=== PATIENT | female | born 1990 | race African-American/Black ===

== ENCOUNTER 2017-02-09 12:27 | Emergency (ER) | payer OTHER ==
[~2017-02-09] VITALS: Ht 160 cm; Wt 72.6 kg
[2017-02-09 14:03] LABS: BILIRUBIN,URINE SMALL (NEG); GLUCOSE,URINE NEGATIVE (NEG); NITRITE,URINE NEGATIVE (NEG); PROTEIN,URINE NEGATIVE (NEG-TRACE)
[2017-02-09 14:14] LABS: BACTERIA,URINE FEW /HPF (0-FEW); RBC,URINE OCC /HPF (0-2); SQUAMOUS EPITHELIAL CELL,UR MOD /LPF; WBC,URINE OCC /HPF (0-4)
--- NOTE | 2017-02-09 14:14 | PHYS DOC ---
Past Medical History Past Medical History: Other Additional Past Medical Histor: POLYCYSTIC OVARIAN SYNDROME Alcohol Use: None Drug Use: None Adult General Chief Complaint Chief Complaint: vaginal discharge HPI HPI 26-year-old female presenting to the emergency department today with vaginal discharge. She reports that she has a creamy increased discharge. She was seen at the health department recently and diagnosed with bacterial vaginosis and treated with Flagyl and also treated for yeast infection. She reports her symptoms improved mildly with these medications but however have returned. She denies any recent STD exposure or vaginal bleeding and she denies being . Onset 1 week. Location tract. Duration intermittent. No exacerbating factors present. Review of systems is negative for fevers chills. She does note that she does have mild intermittent right lower quadrant abdominal pain that is been present for more than 2 months. She has a history of ovarian cysts and believe it is an ovarian cyst. she states her pain is not the primary reason for being here today. All other review of systems is negative unless otherwise noted in history of present illness. ED course: 26-year-old female presenting to the emergency department with vaginal discharge. Afebrile with normal heart rate. Abdomen is soft and nontender. Negative McBurney's point. Patient does not appear to be in pain during my examination. Vaginal exam was performed in the presence of female nurse. Just above bacterial vaginosis. equivocal cervical motion tenderness. Swab sent. Rocephin and azithromycin given. Positive for bacterial vaginosis. The patient was then discharged home in stable condition to follow up with their primary care physician over the next 2-3 days. They were to return if their symptoms worsened or if they were concerned for any reason. [id number] discharge instructions and return precautions were given. Patient's questions were answered to their satisfaction. Patient is comfortable plan. Review of Systems Review of Systems SEE ABOVE. Allergies Allergies Allergies Coded Allergies Type Severity Reaction Last Updated Verified No Known Drug Allergies 02/09/17 No Physical Exam Physical Exam Constitutional: Well developed, well nourished, no acute distress, non-toxic appearance. [] HENT: Normocephalic, atraumatic, bilateral external ears normal, oropharynx moist, no oral exudates, nose normal. [] Eyes: PERRLA, EOMI, conjunctiva normal, no discharge. [] Neck: Normal range of motion, no tenderness, supple, no stridor. [] Cardiovascular:Heart rate regular rhythm, no murmur [] Lungs & Thorax: Bilateral breath sounds clear to auscultation [] Abdomen: Bowel sounds normal, soft, no tenderness, no masses, no pulsatile masses. [] see above Skin: Warm, dry, no erythema, no rash. [] Back: No tenderness, no CVA tenderness. [] Extremities: No tenderness, no cyanosis, no clubbing, ROM intact, no edema. [] Neurologic: Alert and oriented X 3, normal motor function, normal sensory function, no focal deficits noted. [] Psychologic: Affect normal, judgement normal, mood normal. [] Current Patient Data Vital Signs Vital Signs Date Time Temp Pulse Resp B/P (MAP) Pulse Ox O2 Delivery O2 Flow Rate FiO2 02/09/17 12:41 98.5 85 18 143/90 (107) 100 Room Air 98.5 Lab Values Laboratory Tests Test 02/09/17 11:42 02/09/17 12:36 POC Urine HCG, Qualitative Hcg negative (Negative) Urine Collection Type Unknown Urine Color Anastasia Urine Clarity Clear Urine pH 6.0 Urine Specific Gibbon >=1.030 Urine Protein Negative mg/dL (NEG-TRACE) Urine Glucose (UA) Negative mg/dL (NEG) Urine Ketones (Stick) Negative mg/dL (NEG) Urine Blood Negative (NEG) Urine Nitrite Negative (NEG) Urine Bilirubin Small (NEG) Urine Urobilinogen Dipstick 1.0 mg/dL (0.2 mg/dL) Urine Leukocyte Esterase Negative (NEG) Urine RBC Occ /HPF (0-2) Urine WBC Occ /HPF (0-4) Urine Squamous Epithelial Cells Mod /LPF Urine Bacteria Few /HPF (0-FEW) Urine Mucus Marked /LPF Microbiology 02/09/17 Wet Prep - Final, Complete EKG EKG [] Radiology/Procedures Radiology/Procedures [] Course & Med Decision Making Course & Med Decision Making Pertinent Labs and Imaging studies reviewed. (See chart for details) [] Dragon Disclaimer Dragon Disclaimer This electronic medical record was generated, in whole or in part, using a voice recognition dictation system. Departure Departure Impression: Primary Impression: Vaginal discharge Disposition: 01 HOME, SELF-CARE Condition: STABLE Referrals: NO PCP (PCP) LATA GUPTA Jr, MD Patient Instructions: Bacterial Vaginosis, [id number] Scripts Metronidazole (FLAGYL) 500 Mg Tablet 1 TAB PO BID, #14 TAB Prov: IVON MAYORGA MD 02/09/17 IVON MAYORGA MD Feb 09, 2017 14:14
[2017-02-09] MEDS ORDERED: METR500T PO (15:27)
[2017-02-09] MEDS ORDERED: AZITHROMYCIN 250 MG TABLET. PO ONE (15:30)
[2017-02-09] MEDS ORDERED: cefTRIAXone IM 250 MG VIAL IM ONE (15:30)
[2017-02-09 15:40] VITALS: BP 124/78
== END 2017-02-09 15:58 | disposition home or self-care (01) ==
LOC: ER 12:27
DX: N89.8 Other specified noninflammatory disorders of vagina (principal); R10.31 Right lower quadrant pain; E28.2 Polycystic ovarian syndrome
CPT/HCPCS: 81001; 81025; 87491; 87591; 96372; 99284; J0696; Q0111; Q0144

== ENCOUNTER → 2017-05-02 | Outpatient (CLI) | payer OTHER ==
[~2017-05-02] MED LIST: METR500T PO
--- NOTE | 2017-05-02 13:04 | KCIC ---
INDICATION: Infertility. Polycystic ovarian syndrome. TECHNIQUE: [employer] AP pelvis was performed in anticipation of a hysterosalpingogram. FINDINGS: Bony pelvis appears intact. There are calcified phleboliths. Included bowel gas pattern is nonobstructive. Hysterosalpingogram procedure was discussed with the patient and consent obtained. All questions were answered. Timeout was performed. Speculum was inserted and the cervix identified. Cervix was cleaned with Betadine. Despite multiple attempts, the 5 Romansh hysterosalpingogram catheter with external stiffener could not be threaded through the endocervical canal. Numerous attempts were made over approximately 30 minutes, 2 different catheters utilized. Inability to perform the procedure was discussed with the patient. Report was also left with the ordering clinician's nurse, Denise, at 1223 hours. Possible etiologies for inability to pass the catheter would include cervical stenosis or excessively curved cervix. Should the procedure be reattempted, it may be beneficial to perform at an institution that has additional instrumentation options including a tenaculum. IMPRESSION: 1. Normal KUB. 2. Unsuccessful attempt at HSG. Electronically signed by: Axel Lind MD (05/02/2017 1:00 PM) [id number]
== END | disposition home or self-care (01) ==
LOC: KCIC 11:05
PROVIDERS: ATTEND Obstetrics & Gynecology
DX: E28.2 Polycystic ovarian syndrome (principal)
CPT/HCPCS: 74400

== ENCOUNTER → 2018-01-02 | Outpatient (CLI) | payer OTHER ==
[2018-01-02] MEDS: METHACHOLINE CHLORIDE 100 MG VIAL.NEB. INH (09:44)
[2018-01-02] MEDS: ALBUTEROL SULFATE 2.5 MG/3 ML NEBU. NEB (10:13)
== END | disposition home or self-care (01) ==
LOC: PF 08:18
DX: R06.09 Other forms of dyspnea (principal)
CPT/HCPCS: 94070; 94640; J7613; J7674

== ENCOUNTER → 2018-01-21 | Outpatient (CLI) | payer OTHER | END | disposition home or self-care (01) | LOC: KCIC US 12:48 | DX: N63.13 Unspecified lump in the right breast, lower outer quadrant (principal) | CPT/HCPCS: 76641 ==